=== PATIENT | female | born 1990 | race Caucasian/White ===

== ENCOUNTER 2019-03-01 15:33 | Emergency (ER) | payer SELFPAY ==
--- NOTE | 2019-03-01 18:19 | RAD ---
RIGHT HAND THREE VIEWS: 03/01/2019 FINDINGS: No fracture is seen. The bones and joints of the thumb are unremarkable. IMPRESSION: No acute findings. POS: HOME
== END 2019-03-01 17:00 | disposition home or self-care (01) ==
LOC: BURERS 15:33
DX: S63.601A Unspecified sprain of right thumb, initial encounter (principal); F17.210 Nicotine dependence, cigarettes, uncomplicated; W22.8XXA Striking against or struck by other objects, initial encounter; Y92.34 Swimming pool (public) as the place of occurrence of the external cause

== ENCOUNTER 2022-08-19 16:36 | Emergency (ER) | payer SELFPAY ==
[2022-08-19] MEDS ORDERED: Cyclobenzaprine 10 MG TAB ONE (17:32)
== END 2022-08-19 17:45 | disposition home or self-care (01) ==
LOC: BURERS 16:36
DX: S16.1XXA Strain of muscle, fascia and tendon at neck level, initial encounter (principal); F17.210 Nicotine dependence, cigarettes, uncomplicated; W11.XXXA Fall on and from ladder, initial encounter
CPT/HCPCS: 99283

== ENCOUNTER 2023-04-25 13:45 | Emergency (ER) | payer SELFPAY ==
[2023-04-25 14:11] LABS: Bilirubin Negative (Negative); Blood, Urine Trace (Negative); Glucose, Urine (Dipstick) 500 mg/dL (Negative); Ketone, Urine Negative (Negative); Leukocyte Small (Negative); Nitrite Negative (Negative); Protein, Urine (Dipstick) 30 mg/dL (Neg-Trace); Specific Gravity, Urine 1.025 (1.005-1.030); pH, Urine 7.5 (5.0-9.0)
[2023-04-25 14:17] LABS: CAUTI Indications for Culture Dysuria,urgency,freq; Clarity Cloudy (Clear)
[2023-04-25 14:18] LABS: Bacteria/HPF 1+ HPF (None Seen); Squamous Epithelial 0-3 HPF (0-3); Urine Culture Reflex Yes Yes
[2023-04-25 14:26] LABS: Pregnancy Test - Urine (BHCG) Negative (Negative)
[2023-04-25 14:27] LABS: Pregu Control Background? CLEAR/WHITE (CLR/WHITE); Pregu Control Bar Appear? YES (CONTROL BAR); Specific Gravity 1.025 (1.002-1.036)
[2023-04-25 14:28] LABS: Amphetamine Detected (NotDetected); Barbiturates Screen Not Detected (NotDetected); Benzodiazepine Screen Not Detected (NotDetected); Cocaine Metabolite Screen Not Detected (NotDetected); Methadone Not Detected (NotDetected); Methamphetamine Detected (NotDetected); Opiate Screen Not Detected (NotDetected); Oxycodone Screen Not Detected (NotDetected); Phencyclidine (PCP) Not Detected (NotDetected); THC/Cannabinoid Screen Not Detected (NotDetected); Tricyclic Screen Not Detected (NotDetected)
[2023-04-25 14:29] LABS: %Basophils 0.7 % (0.0-1.0); %Eosinophils 3.6 % (0.0-10.0); %Lymphocytes 12.9 % (21.0-51.0); %Monocytes 2.9 % (0.0-10.0); %Neutrophils 79.9 % (42.0-75.0); Hematocrit 41.5 % (36.0-47.0); Hemoglobin 13.6 g/dL (12.0-16.0); Manual Diff?? NO; Mean Corpuscular HGB CONC 32.7 g/dL (32.0-36.0); Mean Corpuscular Hemoglobin 28.5 pg (27.0-31.0); Mean Corpuscular Volume 87.2 fl (78.0-98.0); Mean Platelet Volume 7.4 fL (7.4-10.4); Platelet Count 254 10x3/uL (130-400); RBC Distribution Width 11.4 % (11.5-14.5); Red Blood Cell (RBC) Count 4.76 mill/uL (4.20-5.40); White Blood Cell (WBC) Count 12.5 10x3/uL (4.8-10.8)
[2023-04-25 14:30] LABS: #Basophils 0.1 thou/uL (0.0-0.2); #Eosinphils 0.5 thou/uL (0.0-0.7); #Monocytes 0.4 thou/uL (0.11-0.59); MDiff Complete? YES
[2023-04-25 14:34] LABS: Anion Gap 15 mmol/L (10-20); BUN (Urea Nitrogen) 8 mg/dL (7.0-18.7); Carbon Dioxide 23 mmol/L (22-29); Chloride 103 mmol/L (98-107); Potassium 3.6 mmol/L (3.5-5.1); Sodium 137 mmol/L (136-145)
[2023-04-25 14:35] LABS: AST (SGOT) 12 U/L (5-34); Albumin 4.5 g/dL (3.5-5.0); Alkaline Phosphatase 79 U/L (40-110); Bilirubin, Total 0.8 mg/dL (0.2-1.2); Calc. Creatinine Clearance 0 mL/min (70-130); Calcium 9.3 mg/dL (7.6-10.4); Estimated GFR 95; Globulin 2.9 g/dL (2.4-3.5); Glucose 215 mg/dL (70-105); Protein, Total 7.4 g/dL (6.0-8.3)
[2023-04-25 14:36] LABS: ALT (SGPT) 16 U/L (8-55)
[2023-04-25] MEDS ORDERED: Sulfameth/Trimethoprim DS 800-160mg TAB ONE (15:08)
[2023-04-28 02:10] LABS: #Lymphocytes 1.6 thou/uL (1.20-3.40)
== END 2023-04-25 15:16 | disposition home or self-care (01) ==
LOC: BURERS 13:45
DX: N10 Acute pyelonephritis (principal); F17.210 Nicotine dependence, cigarettes, uncomplicated; J42 Unspecified chronic bronchitis
CPT/HCPCS: 74176; 80053; 80306; 81001; 81025; 85025; 87086; 93005; 94760

== ENCOUNTER 2023-08-04 15:26 | Emergency (ER) | payer OTHER | END 2023-08-04 16:20 | disposition home or self-care (01) | LOC: BURERS 15:26 | DX: B34.9 Viral infection, unspecified (principal); F17.210 Nicotine dependence, cigarettes, uncomplicated | CPT/HCPCS: 87804; 99283 ==

== ENCOUNTER 2024-08-18 00:28 | Emergency (ER) | payer OTHER, SELFPAY ==
[2024-08-18] MEDS ORDERED: Bacitracin 1 PK ONE (01:32)
== END 2024-08-18 01:48 | disposition home or self-care (01) ==
LOC: BURERS 00:28
DX: S00.03XA Contusion of scalp, initial encounter (principal); S70.211A Abrasion, right hip, initial encounter; S80.211A Abrasion, right knee, initial encounter; F17.210 Nicotine dependence, cigarettes, uncomplicated; Y04.0XXA Assault by unarmed brawl or fight, initial encounter
CPT/HCPCS: 70450; 72170

== ENCOUNTER 2025-05-17 20:04 | Emergency (ER) | payer OTHER | END 2025-05-17 20:46 | disposition home or self-care (01) | LOC: BURERS 20:04 | DX: M54.10 Radiculopathy, site unspecified (principal); F17.210 Nicotine dependence, cigarettes, uncomplicated | CPT/HCPCS: 99283 ==

== ENCOUNTER 2025-05-30 17:56 | Emergency (ER) | payer OTHER ==
[2025-05-30] MEDS ORDERED: HYDROcodone/Acetaminophen 5/325 mg Tablet ONE (18:37)
[2025-05-30] MEDS ORDERED: predniSONE 20 MG TAB ONE ×2 (18:38→18:39)
== END 2025-05-30 19:25 | disposition home or self-care (01) ==
LOC: BURERS 17:56
DX: M54.12 Radiculopathy, cervical region (principal); F17.210 Nicotine dependence, cigarettes, uncomplicated
CPT/HCPCS: 99283; J7512